=== PATIENT | male | born 1945 | race Caucasian/White ===

== ENCOUNTER 2016-04-16 11:47 | Outpatient (CLI) | payer MEDICARE ==
--- NOTE | 2016-04-16 14:19 | DIAGNOSTIC IMAGING REPORT ---
PROCEDURE: US BILATERAL CAROTID DOPPLER INDICATION: BILAT BRUIT, MITRAL VALVE INSUFFICIENCY TECHNIQUE: Color Doppler duplex imaging of the carotid and vertebral vessels. COMPARISON: None. FINDINGS: Right carotid system: Mild minimally irregular, mainly calcified plaque at the origin of the right internal carotid artery causing minimal subjective luminal stenosis. Minimal noncalcified luminal irregularity. A slightly delayed systolic acceleration seen in the wave form of the midportion of the internal carotid artery. Left carotid system: Minimal luminal irregularity secondary to a calcified and noncalcified plaque. Normal wave forms. Vertebral System: Antegrade vertebral artery flow bilaterally. Right common carotid artery peak systolic velocity 124 cm/second. Right internal carotid artery peak systolic velocity 90 cm/second. Right external carotid artery peak systolic velocity 85 cm/second. Right txixukct-uk-ghjaah carotid artery ratio 0.9 Right vertebral artery peak systolic velocity 34 cm/second. Left common carotid artery peak systolic velocity 92 cm/second. Left internal carotid artery peak systolic velocity 71 cm/second. Left external carotid artery peak systolic velocity 97 cm/second. Left msbffhpc-qf-pdulqz carotid artery ratio 1.1 Left vertebral artery peak systolic velocity 31 cm/second. IMPRESSION: 1. No hemodynamically significant stenosis in either carotid system. 2. Antegrade vertebral artery flow bilaterally. 3. Slightly delayed right internal carotid systolic acceleration may indicate more proximal mild stenosis. Velocity criteria are extrapolated from diameter data as defined by the Society of Radiologists in Ultrasound Consensus Conference, Radiology 2003; 229; 340-346.
--- NOTE | 2016-04-16 14:19 | DIAGNOSTIC IMAGING REPORT ---
PROCEDURE: US BILATERAL CAROTID DOPPLER INDICATION: BILAT BRUIT, MITRAL VALVE INSUFFICIENCY TECHNIQUE: Color Doppler duplex imaging of the carotid and vertebral vessels. COMPARISON: None. FINDINGS: Right carotid system: Mild minimally irregular, mainly calcified plaque at the origin of the right internal carotid artery causing minimal subjective luminal stenosis. Minimal noncalcified luminal irregularity. A slightly delayed systolic acceleration seen in the wave form of the midportion of the internal carotid artery. Left carotid system: Minimal luminal irregularity secondary to a calcified and noncalcified plaque. Normal wave forms. Vertebral System: Antegrade vertebral artery flow bilaterally. Right common carotid artery peak systolic velocity 124 cm/second. Right internal carotid artery peak systolic velocity 90 cm/second. Right external carotid artery peak systolic velocity 85 cm/second. Right shrmzscm-rn-yvuwom carotid artery ratio 0.9 Right vertebral artery peak systolic velocity 34 cm/second. Left common carotid artery peak systolic velocity 92 cm/second. Left internal carotid artery peak systolic velocity 71 cm/second. Left external carotid artery peak systolic velocity 97 cm/second. Left vfkkpgap-fr-mbscbp carotid artery ratio 1.1 Left vertebral artery peak systolic velocity 31 cm/second. IMPRESSION: 1. No hemodynamically significant stenosis in either carotid system. 2. Antegrade vertebral artery flow bilaterally. 3. Slightly delayed right internal carotid systolic acceleration may indicate more proximal mild stenosis. Velocity criteria are extrapolated from diameter data as defined by the Society of Radiologists in Ultrasound Consensus Conference, Radiology 2003; 229; 340-346.
--- NOTE | 2016-04-18 13:06 | DIAGNOSTIC IMAGING REPORT ---
PROCEDURE: 2-D M-mode echo Doppler CLINICAL INDICATION: Heart murmur, MR TECHNIQUE: Standard technique COMPARISON: None available FINDINGS: The aortic valve is calcified in a study consistent with moderate aortic stenosis. Peak gradient 47 mean gradient 27 valve area on average 1.4 cm2. No AI detected. The mitral valve exhibits moderate mitral regurgitation and no stenosis seen the tricuspid valve exhibits 1+ TR with RVSP 23 the pulmonic valve is normal mild left atrial enlargement is apparent LVH present LV ejection fraction 72% with normal contraction right ventricular size function and pressure is normal there are no abnormalities of the aortic root or pericardium appreciated. IMPRESSION: Left Ventricular ejection fraction 72% Moderate aortic stenosis valve area 1.4 cm2 degree 47 mean gradient 27 Moderate mitral regurgitation 1+ TR LVH Left atrial enlargement
== END 2016-04-16 23:00 ==
LOC: US SRH 11:47
DX: I34.0 Nonrheumatic mitral (valve) insufficiency (principal); I35.0 Nonrheumatic aortic (valve) stenosis; I51.7 Cardiomegaly